=== PATIENT | female | born 1960 | race Caucasian/White ===

== ENCOUNTER → 2017-11-15 16:52 | Outpatient (CLI) | payer MEDICAID, SELFPAY ==
--- NOTE | 2017-11-15 17:30 | MRI_ITS ---
MR Brain WO/W Contrast INDICATION: Neck stiffness, dizziness, blurred vision, pain throughout body. Symptoms x 2 years COMPARISON: None TECHNIQUE: Multiplanar multisequence MRI examination of the brain without and with IV contrast. 7 mL of gadavist were given intravenously.. FINDINGS: There is no evidence of restricted diffusion to suggest acute ischemia/infarction. Ventricular system is normal in size and symmetric. Cortical sulci, sylvian fissures, and basal cisterns are well seen. Roldan-white matter junction is normal. Midline structures and craniocervical junction are normal. The cerebellopontine angles are normal and symmetric. Supra-and infratentorial brain parenchyma demonstrates normal signal. There is no evidence of parenchymal microhemorrhage, mass effect or midline shift, or abnormal extra-axial collection. After contrast administration, there is no abnormal parenchymal or extra-axial enhancement identified. Flow-voids of the [place] vascularity are well seen. The paranasal sinuses and mastooid air cells are clear. Sagittal sequence demonstrates posterior angulation of the odontoid process and C2-3 fusion resulting in posterior kinking of the cord at the medulla oblongata, this is suggestive of Klippel-Feil deformity and could be further evaluated with CT of the cervical spine including craniocervical junction. MRI/Brain W/WO Contrast IMPRESSION: Unremarkable MRI examination of the brain. 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 at 1922 Reported and signed by: Savannah Aponte MD Electronically Signed: Savannah Aponte MD at 19:21 EDT Tel , Service support ,
== END ==
PROVIDERS: Family Provider Family Medicine; PCP Family Medicine; Visit Provider Family Medicine
DX: H53.2 Diplopia (principal); R20.2 Paresthesia of skin; M79.602 Pain in left arm; R53.83 Other fatigue
CPT/HCPCS: 70553; A9585

== ENCOUNTER → 2017-11-22 16:45 | Outpatient (CLI) | payer MEDICAID, SELFPAY ==
[2017-11-22 17:30] LABS: Absolute Lymphocyte Count 1.51 X10^3/ul (0.83-4.51); Absolute Neutrophil Count 1.9 X10^3/uL (2.0-7.7); Basophil# 0.02 X10^3/uL; Basophil% 0.5 % (0-1); Eosinophil# 0.04 X10^3/uL; Eosinophils% 1.1 % (0-5); Hematocrit 38.2 % (37-47); Hemoglobin 13.4 g/dl (12.0-15.0); Lymphocyte # 1.51 X10^3/ul (4.0); Mean Corp Hgb Conc 35.1 g/gl (32-36); Mean Corpuscular Hgb 31.1 pg (27.0-32.0); Mean Corpuscular Volume 88.6 fL (81-99); Mean Platelet Vol. 9.9 fl (6.2-12.0); Monocyte# 0.18 X10^3/uL; Monocyte% 4.9 % (0-10); Neutrophil # 1.93 X10^3/uL (2.7-7.7); Neutrophil % 52.5 % (47-70); POSITIVE COUNT NO; POSITIVE DIFFERENTIAL NO; POSITIVE MORPHOLOGY NO; Platelet Count 263 K/mm3 (150-450); RBC Distribution Width SD 38.2 fl (35.1-43.9); Red Blood Count 4.31 M/mm3 (4.2-5.4); White Blood Count 3.7 K/mm3 (4.4-11.0)
[2017-11-22 17:36] LABS: Erythrocyte Sedimentation Rate 3 mm/hr (0-30)
[2017-11-22 18:09] LABS: CRP < 2.90 mg/L (0.0-3.0)
[2017-11-24 14:02] LABS: ANTINUCLEAR ANTIBODIES DIRECT Negative (Negative)
== END ==
PROVIDERS: Family Provider Family Medicine; PCP Family Medicine; Visit Provider Family Medicine
DX: L30.9 Dermatitis, unspecified (principal); R21 Rash and other nonspecific skin eruption; M79.7 Fibromyalgia
CPT/HCPCS: 36415; 85025; 85652; 86038; 86140; 86225; 86235

== ENCOUNTER → 2017-12-01 09:27 | Outpatient (CLI) | payer MEDICAID, SELFPAY ==
--- NOTE | 2017-12-01 09:41 | MRI_ITS ---
STUDY: MRI CERVICAL SPINE WITH AND WITHOUT CONTRAST REASON FOR EXAM: Female, 57 years old. left arm pain, spondylosis, paresthesia of skin, fatigue; r/o ms TECHNIQUE: Standardized fat and water weighted pulse sequences were obtained in the sagittal and axial following I.V. administration of 6 ml of Gadavist contrast material. COMPARISON: X-ray January 07, 2017, CT April 18, 2013 FINDINGS: Normal foramen magnum and brainstem-cervical cord junction. Normal craniovertebral junction. Normal anterior atlantoaxial articulation. Normal odontoid process. Normal cervical lordosis. There is no spondylolisthesis. Disc heights are maintained. There is multilevel disc desiccation. 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 Bone marrow signal is normal. C2/3: There is no central canal or neuroforaminal stenosis. C3/4: There is a tiny central protrusion. There is ligamentum flavum hypertrophy contacting the posterior cord. No central canal or neuroforaminal stenosis. C4/5: There is mild left uncovertebral hyperostosis. Normal disc. No central canal or neuroforaminal stenosis. C5/6: There is a small central protrusion causing borderline mild central canal stenosis without neuroforaminal stenosis. C6/7: Normal. C7/T1: There is a small broad-based central protrusion. No central canal or neuroforaminal stenosis. Normal cervical cord. Normal visualized soft tissue structures. MRI/Spine Cervical W/WO Contrast IMPRESSION: No evidence of multiple sclerosis. There is mild multilevel degenerative disease. C3/4: There is ligamentum flavum hypertrophy contacting the posterior cord. C5/6: There is a small central protrusion causing borderline mild central canal stenosis. 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 Electronically Signed: Slime Reese MD at 14:09 EDT , Service support ,
== END ==
PROVIDERS: Family Provider Family Medicine; PCP Family Medicine; Visit Provider Family Medicine
DX: M47.812 Spondylosis without myelopathy or radiculopathy, cervical region (principal); M79.602 Pain in left arm; R20.2 Paresthesia of skin; R53.83 Other fatigue; H53.2 Diplopia
CPT/HCPCS: 72156; A9585

== ENCOUNTER → 2018-06-20 13:19 | Outpatient (CLI) | payer MEDICAID, SELFPAY ==
[2018-06-20 15:54] LABS: Amylase 67 U/L (25-115); Lipase 113 U/L (73-393)
== END ==
PROVIDERS: Family Provider Family Medicine; PCP Family Medicine; Visit Provider Family Medicine
DX: R14.0 Abdominal distension (gaseous) (principal)
CPT/HCPCS: 36415; 82150; 83690

== ENCOUNTER 2018-07-25 11:07 | Emergency (ER) | payer MEDICAID, SELFPAY ==
[2018-07-25 11:07] VITALS: BP 126/78; PULSE 71; RESP 18; TEMP 36.6; O2SAT 100; BMI 19.5
--- NOTE | 2018-07-25 11:26 | EKG12_ITS ---
Test Reason : FATIGUE Blood Pressure : / mmHG Vent. Rate : 067 BPM Atrial Rate : 067 BPM P-R Int : 158 ms QRS Dur : 078 ms QT Int : 408 ms P-R-T Axes : 077 053 066 degrees QTc Int : 431 ms Normal sinus rhythm Normal ECG Confirmed by JACEY GRAJEDA, KAYCE ([id number]), slot editor DANIEL TAVAREZ ([id number] on 07/26/2018 3:33:37 PM Referred By: AL Confirmed By:KAYCE MARI MD
--- NOTE | 2018-07-25 11:31 | ED.DCSUM_ITS ---
- ER Visit Summary Date of Service: 07/25/18 Chief Complaint: Fatigue History of Present Illness: The patient is a 57 F history of fibromyalgia and cervical disc. Patient states she has had fatigue for 1-2 weeks. She is also had some abdominal discomfort and chest discomfort. Not associated with exertion. No fever. Mild nausea but no vomiting or diarrhea. No melena or dysuria. Physical Examination: Well-appearing middle-age female no acute distress. Vital signs are stable and afebrile. Pulse ox is 100% on room air no signs of hypoxia. HEENT exam unremarkable. Pupils round reactive light. No facial droop. Normal speech. Moist mucous membranes. Neck nontender no lym phadenopathy. Lungs clear to auscultation bilaterally. Heart regular rhythm no murmur. Rate about 70. Extremities moving all 4. Calves nontender without edema or cords. Neurologically awake and alert without any focal motor deficits. 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 Dorsi plantar flexion intact. Back nontender. Skin unremarkable. Test Results: CBC normal. Chemistries normal. UA normal. Troponin normal. Chest x-ray no acute abnormality read both by myself and radiologist. EKG sinus rhythm rate of 67 with no acute abnormality. No signs of [place] or ischemia. No dysrhythmia. Emergency Department Course and Treatment: She was fatigue with basically an unremarkable exam. Screening labs will be obtained. Multiple repeat exams patient is doing well. I went over all test results with her and her significant other. They are comfortable with her being discharged home. She can follow-up with her primary care physician. Treatment Plan: Follow-up with your doctor. Disposition: Discharge Impression: Acute generalized fatigue of uncertain etiology History of fibromyalgia This note was generated with [employer] dictation software. It may contain incorrect words, spelling, and punctuation that were not noted in review of the chart prior to signing ED Disposition - Plan for ED Patient: Chief Complaint: Fatigue Referrals: Saulo Griggs DO [Primary Care Provider] -
--- NOTE | 2018-07-25 11:33 | RAD_ITS ---
STUDY: X-RAY CHEST REASON FOR EXAM: Female, 57 years old. Chest pain. TECHNIQUE: Single AP portable upright view of the chest. COMPARISON: Portable AP upright chest x-ray October 29, 2015. FINDINGS: The lungs are clear and expanded. There is no demonstrated pleural abnormality. Normal size heart. Normal mediastinum and jareth. Normal visualized pulmonary arteries. Normal visualized aortic arch and descending thoracic aorta. There are stable multilevel degenerative changes of the visualized thoracic spine. 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 Borderline widening of the right acromioclavicular joint. There is no demonstrated abnormality of the visualized soft tissue structures of the upper abdomen. RAD/Chest 1 View (Portable) IMPRESSION: No acute cardiopulmonary disease. Electronically Signed: Bobo Stevens MD at 12:29 EST , Service support ,
[2018-07-25 11:48] LABS: Absolute Lymphocyte Count 1.15 X10^3/ul (0.83-4.51); Absolute Neutrophil Count 1.6 X10^3/uL (2.0-7.7); Basophil# 0.01 X10^3/uL; Basophil% 0.3 % (0-1); Eosinophil# 0.09 X10^3/uL; Hematocrit 40.7 % (37-47); Hemoglobin 13.7 g/dl (12.0-15.0); Lymphocyte # 1.15 X10^3/ul (4.0); Lymphocyte % 38.9 % (19-41); Mean Corp Hgb Conc 33.7 g/gl (32-36); Mean Corpuscular Hgb 30.3 pg (27.0-32.0); Mean Platelet Vol. 9.8 fl (6.2-12.0); Monocyte# 0.13 X10^3/uL; Monocyte% 4.4 % (0-10); Neutrophil # 1.58 X10^3/uL (2.7-7.7); Neutrophil % 53.4 % (47-70); Platelet Count 232 K/mm3 (150-450); RBC Distribution Width CV 12.3 % (11.6-14.6); RBC Distribution Width SD 39.7 fl (35.1-43.9); Red Blood Count 4.52 M/mm3 (4.2-5.4)
[2018-07-25 11:50] LABS: POSITIVE COUNT NO; POSITIVE DIFFERENTIAL NO; POSITIVE MORPHOLOGY NO
[2018-07-25 12:04] LABS: Anion Gap 7 (5-15); BUN 20 mg/dL (7-18); BUN/Creat Ratio 28.2 RATIO (10-20); Calcium,Total 8.9 mg/dL (8.5-10.1); Chloride 106 mmol/L (98-107); Creatinine, Serum 0.71 mg/dL (0.55-1.02); EST Glomerular Filtration Rate 91 mL/min (>60); Est Glom Filt Rate - Afr Amer 110 mL/min (>60); Estimated Creatinine Clearance 79.19 ml/min; Glucose 88 mg/dL (74-106); Potassium 4.1 mmol/L (3.5-5.1); Sodium Level 142 mmol/L (136-145)
[2018-07-25 13:04] LABS: Mucous, Urine 0 SEEN /hpf (<or=2+)
[2018-07-25 13:05] LABS: Color, Urine Yellow (Yellow); Glucose, Dipstick Normal (Normal); Ketone-Dipstick 15 mg/dl (Negative); Leukocyte Esterase-Dipstick 100 /ul (Negative); Nitrite-Dipstick Negative (Negative); Occult Blood-Urine 10 /ul (Negative); Protein-Dipstick Negative (Negative); Specific Gravity, Urine 1.015 (1.002-1.030); Urine Bilirubin Dipstick Negative (Negative); Urine Clarity Clear (Clear); Urine Urobilinogen Normal (Normal)
[2018-07-25 13:07] VITALS: BP 111/50; PULSE 79; RESP 22; O2SAT 98
[2018-07-25 13:17] LABS: Red Blood Cells-Urine 0-5 SEEN /hpf (0-5); Squamous Epithelial Cells - UA 0-5 SEEN /hpf (5-10); White Blood Cells 0-5 SEEN /hpf (0-5)
[2018-07-25 13:18] LABS: Bacteria RARE /hpf (None Seen)
[2018-07-25 13:34] VITALS: O2SAT 98
--- NOTE | 2018-07-25 14:43 | ED.DEP ---
ED Disposition - Plan for ED Patient: Disposition: Home or Assisted Living Chief Complaint: Fatigue Instructions: ED Weakness [facility] Referrals: Saulo Griggs DO [Primary Care Provider] - As Needed Additional Instructions: Follow-up with primary care physician. All your lab work, chest x-ray and EKG were normal today.
[2018-07-25 15:00] VITALS: BP 99/59; PULSE 70; RESP 16; O2SAT 100
== END 2018-07-25 15:00 | disposition home or self-care (01) ==
PROVIDERS: Emergency Provider Emergency Medicine; Family Provider Family Medicine; PCP Family Medicine
DX: R53.83 Other fatigue (principal); M79.7 Fibromyalgia
CPT/HCPCS: 71045; 80048; 81001; 84484; 85025; 93005; 99284; A4216

== ENCOUNTER → 2018-07-27 10:29 | Outpatient (CLI) | payer MEDICAID, SELFPAY ==
[2018-07-25 11:07] VITALS: BMI 19.5
[2018-07-27 12:23] LABS: Erythrocyte Sedimentation Rate < 1 mm/hr (0-30)
[2018-07-27 12:25] LABS: Absolute Lymphocyte Count 1.06 X10^3/ul (0.83-4.51); Absolute Neutrophil Count 1.9 X10^3/uL (2.0-7.7); Basophil# 0.03 X10^3/uL; Basophil% 0.9 % (0-1); Hemoglobin 13.9 g/dl (12.0-15.0); Lymphocyte # 1.06 X10^3/ul (4.0); Lymphocyte % 31.6 % (19-41); Mean Corp Hgb Conc 33.9 g/gl (32-36); Mean Corpuscular Hgb 30.8 pg (27.0-32.0); Mean Corpuscular Volume 90.9 fL (81-99); Mean Platelet Vol. 10.2 fl (6.2-12.0); Monocyte# 0.22 X10^3/uL; Monocyte% 6.6 % (0-10); Neutrophil # 1.93 X10^3/uL (2.7-7.7); Neutrophil % 57.6 % (47-70); Platelet Count 258 K/mm3 (150-450); RBC Distribution Width CV 12.4 % (11.6-14.6); RBC Distribution Width SD 40.8 fl (35.1-43.9); Red Blood Count 4.51 M/mm3 (4.2-5.4); White Blood Count 3.4 K/mm3 (4.4-11.0)
[2018-07-27 12:31] LABS: POSITIVE COUNT NO; POSITIVE DIFFERENTIAL NO; POSITIVE MORPHOLOGY NO
[2018-07-27 12:49] LABS: Albumin, Serum 4.4 g/dL (3.2-5.0); BUN 18 mg/dL (7-18); BUN/Creat Ratio 26.4 RATIO (10-20); Creatinine, Serum 0.68 mg/dL (0.55-1.02); EST Glomerular Filtration Rate 95 mL/min (>60); Est Glom Filt Rate - Afr Amer 114 mL/min (>60); Glucose 79 mg/dL (74-106); Protein, Total 7.5 g/dL (6.4-8.2)
[2018-07-27 12:50] LABS: ALB/GLOB Ratio 1.4 RATIO (0.9-2.4); AST(SGOT) 19 U/L (15-37); Alanine Aminotransfer ALT/SGPT 34 U/L (13-56); Alkaline Phosphatase 61 U/L (45-117); Anion Gap 6 (5-15); CPK Total, Creatine Kinase 64 U/L (26-192); Calcium,Total 9.1 mg/dL (8.5-10.1); Chloride 107 mmol/L (98-107); Globulin 3.1 g/dL (2.2-4.2); Sodium Level 140 mmol/L (136-145)
[2018-07-27 14:47] LABS: CRP < 2.90 mg/L (0.0-3.0)
== END ==
PROVIDERS: Family Provider Family Medicine; PCP Family Medicine; Referring Provider Family Medicine; Visit Provider Family Medicine
DX: M79.10 Myalgia, unspecified site (principal); I95.9 Hypotension, unspecified; R53.83 Other fatigue
CPT/HCPCS: 36415; 80053; 82533; 82550; 85025; 85652; 86140

== ENCOUNTER 2018-10-02 16:58 | Emergency (ER) | payer MEDICAID, SELFPAY ==
[2018-10-02 16:58] VITALS: BP 123/79; PULSE 80; RESP 16; TEMP 36.5; O2SAT 99; BMI 20.1
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
--- NOTE | 2018-10-02 17:21 | ED.DEP ---
ED Disposition - Plan for ED Patient: Instructions: ED Burn Thermal D 1st 2nd Dressing Prescriptions: Oxycodone HCl/Acetaminophen [Percocet 5/325] 1 tab PO Q6H PRN PRN 3 Days #12 tab PRN Reason: Pain Referrals: Saulo Griggs DO [Primary Care Provider] - 3-5 Days
[2018-10-02] MEDS: Diphth,Pertuss(Acell),Tet Vac 0.5 ML Vial IM (17:32)
[2018-10-02] MEDS: BACITRACIN 15 GM Tube 1 APPLIC TOPICAL (17:33)
[2018-10-02 17:45] VITALS: BP 121/74; PULSE 76; RESP 16; O2SAT 100
== END 2018-10-02 17:46 | disposition home or self-care (01) ==
LOC: ED 17:25
PROVIDERS: Emergency Provider Emergency Medicine; Family Provider Family Medicine; PCP Family Medicine
DX: T20.14XA Burn of first degree of nose (septum), initial encounter (principal); T20.16XA Burn of first degree of forehead and cheek, initial encounter; T20.12XA Burn of first degree of lip(s), initial encounter; X13.1XXA Other contact with steam and other hot vapors, initial encounter; Y93.G3 Activity, cooking and baking; Y92.000 Kitchen of unspecified non-institutional (private) residence as the place of occurrence of the external cause; Y99.8 Other external cause status
CPT/HCPCS: 90471; 90715; 99282

== ENCOUNTER → 2018-10-19 10:06 | Outpatient (CLI) | payer MEDICAID, SELFPAY ==
[2018-10-02 16:58] VITALS: BMI 20.1
--- NOTE | 2018-10-19 10:09 | RAD_ITS ---
STUDY: X-RAY - LUMBAR SPINE REASON FOR EXAM: Female, 57 years old. Low back pain and right hip pain. TECHNIQUE: 5 view(s) of the lumbar spine were obtained. COMPARISON: None FINDINGS: Normal lumbar lordosis. There is no substantial scoliosis. There is a normal alignment of the vertebrae. There is mild endplate spondylosis of the lumbar vertebrae and the level of L4-L5. The disc spaces are within normal limits. There is no demonstrated fracture. The soft tissue structures are unremarkable. RAD/L/S Spine Min 4 Views IMPRESSION: Minimal degenerative changes. Electronically Signed: Elver Oliveira MD at 10:09 EDT Tel , Service support ,
--- NOTE | 2018-10-19 10:09 | RAD_ITS ---
STUDY: X-RAY - PELVIS AND RIGHT HIP REASON FOR EXAM: Female, 57 years old. Low back pain and right hip pain. TECHNIQUE: 3 views of the pelvis and hip. COMPARISON: None. FINDINGS: There is a non-specific bowel gas pattern. There are multiple calcified phleboliths. Normal bilateral iliac wings, sacroiliac joints and visualized sacrum. Normal bilateral superior and inferior pubic rami. Normal pubic symphysis. Normal bilateral ischial tuberosities. Normal visualized femoral head. Normal acetabulum. There is mild articular joint space narrowing of the hip. RAD/HIP, UNI W/ Pelvis 2-3 Views IMPRESSION: Mild narrowing of the hip joint. Electronically Signed: Elver Oliveira MD at 10:03 EDT Tel , Service support ,
== END ==
PROVIDERS: Family Provider Family Medicine; PCP Family Medicine; Referring Provider Family Medicine; Visit Provider Family Medicine
DX: M54.17 Radiculopathy, lumbosacral region (principal); M25.551 Pain in right hip
CPT/HCPCS: 72110; 73502

== ENCOUNTER 2018-11-08 06:41 | Emergency (ER) | payer MEDICAID, SELFPAY ==
[2018-11-08 06:42] VITALS: BP 135/53; PULSE 96; RESP 18; TEMP 36.4; O2SAT 97; BMI 21.0
--- NOTE | 2018-11-08 06:54 | ED.DCSUM_ITS ---
- ER Visit Summary Date of Service: 11/08/18 Chief Complaint: Vomiting and diarrhea History of Present Illness: The patient is a 58 F presenting with vomiting and diarrhea. Patient states this started yesterday. She has had vomiting and diarrhea throughout the night. She states her granddaughter was recently ill with similar complaints. She denies recent antibiotics, travel, or bad food exposure. Denies blood in her stool or emesis. She has diffuse abdominal cramping. Denies fever. She called her primary care physician and was advised to come to the ED for IV fluids. Physical Examination: Blood pressure 135/53, temperature 97.6, heart rate 96, respiratory rate 18. Pulse ox 97% on room air. Alert no acute distress. HEENT exam dry mucous membranes Neck is supple. Lungs are clear and equal bilaterally. Heart is regular rate and rhythm. Abdomen is soft diffuse tenderness with no rebound or guarding Extremities are unremarkable. Skin is warm and dry. No focal neurologic deficit. Remainder of exam is unremarkable. Emergency Department Course and Treatment: Patient was given IV fluids, Zofran. CBC, chemistries unremarkable other than glucose 130, BUN 26. ALT 58, lipase is normal. Patient is starting to feel improved. She was given additional IV fluids. Urinalysis is pending. Patient will be checked out to the oncoming physician for reevaluation. Disposition: Pending Impression: Vomiting and diarrhea This note was generated with [employer] dictation software. It may contain incorrect words, spelling, and punctuation that were not noted in review of the chart kamila or to signing ED Disposition - Plan for ED Patient: Referrals: Saulo Griggs DO [Primary Care Provider] -
[2018-11-08] MEDS: 0.9% Normal Saline 1,000 ML 1000 ML IV (06:55)
[2018-11-08] MEDS: Ondansetron 4 MG/2 ML Vial IV (06:56)
[2018-11-08 07:00] LABS: Absolute Lymphocyte Count 0.47 X10^3/ul (0.83-4.51); Absolute Neutrophil Count 5.2 X10^3/uL (2.0-7.7); Basophil# 0.01 X10^3/uL; Basophil% 0.2 % (0-1); Eosinophil# 0.01 X10^3/uL; Eosinophils% 0.2 % (0-5); Hemoglobin 16.4 g/dl (12.0-15.0); Lymphocyte # 0.47 X10^3/ul (4.0); Lymphocyte % 7.9 % (19-41); Mean Corp Hgb Conc 34.9 g/gl (32-36); Mean Corpuscular Hgb 31.1 pg (27.0-32.0); Mean Corpuscular Volume 89.2 fL (81-99); Mean Platelet Vol. 9.9 fl (6.2-12.0); Monocyte# 0.22 X10^3/uL; Monocyte% 3.7 % (0-10); Neutrophil # 5.24 X10^3/uL (2.7-7.7); Neutrophil % 87.8 % (47-70); Platelet Count 262 K/mm3 (150-450); RBC Distribution Width CV 12.6 % (11.6-14.6); RBC Distribution Width SD 40.1 fl (35.1-43.9); Red Blood Count 5.27 M/mm3 (4.2-5.4)
[2018-11-08 07:01] LABS: Differential Indicated SCAN CRITERIA MET; POSITIVE COUNT NO; POSITIVE DIFFERENTIAL YES; POSITIVE MORPHOLOGY NO
[2018-11-08 07:09] LABS: ALB/GLOB Ratio 1.3 RATIO (0.9-2.4); AST(SGOT) 37 U/L (15-37); Alanine Aminotransfer ALT/SGPT 58 U/L (13-56); Albumin, Serum 4.7 g/dL (3.2-5.0); Alkaline Phosphatase 83 U/L (45-117); Anion Gap 8 (5-15); BUN 26 mg/dL (7-18); BUN/Creat Ratio 25.7 RATIO (10-20); Calcium,Total 9.1 mg/dL (8.5-10.1); Chloride 110 mmol/L (98-107); Creatinine, Serum 1.01 mg/dL (0.55-1.02); EST Glomerular Filtration Rate 60 mL/min (>60); Est Glom Filt Rate - Afr Amer 73 mL/min (>60); Estimated Creatinine Clearance 57.34 ml/min; Globulin 3.6 g/dL (2.2-4.2); Glucose 130 mg/dL (74-106); Lipase 73 U/L (73-393); Potassium 3.6 mmol/L (3.5-5.1); Protein, Total 8.3 g/dL (6.4-8.2); Sodium Level 139 mmol/L (136-145)
--- NOTE | 2018-11-08 07:25 | ED.DEP ---
ED Disposition - Plan for ED Patient: Instructions: ED Diet Vomiting Diarrhea Prescriptions: Ondansetron [Zofran Odt] 4 mg PO Q8H PRN PRN #10 tablet PRN Reason: Nausea Referrals: Saulo Griggs DO [Primary Care Provider] -
[2018-11-08] MEDS: 0.9% Normal Saline 1,000 ML 999 ML IV (07:52)
[2018-11-08 08:00] LABS: Color, Urine Yellow (Yellow); Glucose, Dipstick Normal (Normal); Ketone-Dipstick 50 mg/dl (Negative); Leukocyte Esterase-Dipstick 100 /ul (Negative); Nitrite-Dipstick Negative (Negative); Occult Blood-Urine 150 /ul (Negative); Protein-Dipstick 30 mg/dl (Negative); Urine Bilirubin Dipstick Negative (Negative); Urine Clarity Sl. Cloudy (Clear); Urine Urobilinogen Normal (Normal)
[2018-11-08 08:20] LABS: Bacteria 1+ /hpf (None Seen); Mucous, Urine 1+ /hpf (<or=2+); Red Blood Cells-Urine 0-5 SEEN /hpf (0-5); Squamous Epithelial Cells - UA 0-5 SEEN /hpf (5-10); White Blood Cells 0-5 SEEN /hpf (0-5)
--- NOTE | 2018-11-08 09:32 | ED.DEP ---
ED Disposition - Plan for ED Patient: Instructions: ED Diet Vomiting Diarrhea Prescriptions: Ondansetron [Zofran Odt] 4 mg PO Q8H PRN PRN #10 tablet PRN Reason: Nausea Dicyclomine HCl [Bentyl] 10 mg PO 4X/DAY #10 cap Referrals: Saulo Griggs DO [Primary Care Provider] -
[2018-11-08 09:47] VITALS: RESP 18
== END 2018-11-08 09:50 | disposition home or self-care (01) ==
LOC: ED 07:11
PROVIDERS: Emergency Provider Emergency Medicine; Family Provider Family Medicine; PCP Family Medicine
DX: A08.4 Viral intestinal infection, unspecified (principal); M79.7 Fibromyalgia; M06.9 Rheumatoid arthritis, unspecified
CPT/HCPCS: 80053; 81001; 83690; 85025; 96361; 96374; 99283; J7030; A4216; J2405

== ENCOUNTER → 2019-06-07 16:12 | Outpatient (CLI) | payer MEDICAID, SELFPAY | PROVIDERS: Family Provider Family Medicine; PCP Family Medicine; Visit Provider Family Medicine | DX: N39.0 Urinary tract infection, site not specified (principal) | CPT/HCPCS: 87086; 87088 ==

== ENCOUNTER → 2019-06-13 16:52 | Outpatient (CLI) | payer MEDICAID, SELFPAY ==
--- NOTE | 2019-06-13 17:02 | MRI_ITS ---
STUDY: MRI RIGHT MIDFOOT REASON FOR EXAM: Female, 58 years old. Peroneal tendinitis. Pain. TECHNIQUE: Standardized fat and water weighted pulse sequences were obtained in all 3 orthogonal planes. COMPARISON: None. FINDINGS: Normal talonavicular articulation. Normal calcaneocuboid articulation. Normal navicular-cuneiform articulations. Normal intercuneiform articulations. There is plantar heel spur. Normal first tarsometatarsal articulation. Normal Lisfranc ligament. Normal second and third tarsometatarsal articulations. Normal cuboid fourth and cuboid fifth tarsometatarsal articulation. Normal first through fifth metatarsi. There is no demonstrated fracture of the metatarsal bones. Normal tibialis anterior tendon. Normal extensor hallucis longus tendon. Normal extensor digitorum longus tendons. There is os peroneum with edema, incorporated into the peroneal longus, series 3 image 02/07. Normal peroneus brevis tendon and distal insertion. Normal intrinsic muscles of the mid and forefoot region. Normal extensor digitorum brevis muscle. Normal subcutis adipose space. MRI/Lower Ext/No Jt/w/o IMPRESSION: Os peroneum with edema in the peroneal longus tendon. Electronically Signed: Shane Jane MD at 12:08 EST , Service support ,
== END ==
PROVIDERS: Family Provider Family Medicine; PCP Family Medicine; Referring Provider Podiatrist Foot & Ankle Surgery; Visit Provider Podiatrist Foot & Ankle Surgery
DX: M76.71 Peroneal tendinitis, right leg (principal)
CPT/HCPCS: 73718

== ENCOUNTER → 2019-06-18 15:24 | Outpatient (CLI) | payer MEDICAID, SELFPAY | PROVIDERS: Family Provider Family Medicine; PCP Family Medicine; Referring Provider Family Medicine; Visit Provider Family Medicine | DX: R19.7 Diarrhea, unspecified (principal) | CPT/HCPCS: 83630; 87177; 87209; 87493; 87506 ==

== ENCOUNTER → 2019-07-14 14:23 | Outpatient (CLI) | payer MEDICAID, SELFPAY ==
[2019-07-14 08:42] VITALS: BMI 21.0
== END ==
PROVIDERS: Family Provider Family Medicine; PCP Family Medicine; Referring Provider Physician Assistant; Visit Provider Physician Assistant
DX: J02.9 Acute pharyngitis, unspecified (principal)
CPT/HCPCS: 87070

== ENCOUNTER 2019-10-03 10:30 | Outpatient (RCR) | payer MEDICAID, SELFPAY ==
[2019-07-14 08:42] VITALS: BMI 21.0
--- NOTE | 2019-09-26 14:07 | HP.PTEVAL ---
Patient's Visit Information ALAINA FOWLER is a 58 year old F referred to Physical Therapy by Jeff Guevara DPM with a diagnosis of S/P REPAIR PERONEAL TENDON. Date of Evaluation: 09/26/19 Physical Therapist: Kvng Henry, PT, Cert MDT, OCS - Visit Plan Frequency: 2x /Week Duration: 4 Weeks Plan: PT INTERVENTION GRADED AROM /STRENGTHENING ANKLE STABILIZERS ,PROPRIOCEPTION RIGT ANKLE,CP/ESTM NEEDED, FUNCTIONAL STRENGTHENING - Subjective Subjective: This 58 y/o female presents to physical therapy with s/p peroneal tendon repair on Jul 27 at [facility]. Patient d/c DOS with NWB RLE and CAM boot with 3weeks,then PWB with fww and CAM boot 2weeks ,then fww WBAT with CAM boot. Patient then last week removed boot no device and use CAM boot as needed. Patient has edema with some pain. Patient has difficulty with stairs one step at a time.Patient is unable to squat/kneeling. Patient pain affects ablity to stand ,walk impairs ADLS'. Patient condition affects housework tasks and ADL'S/job demands.Patient MRI showed extra bone showed tendon tear perneal.Uses boot when walking long distances. SOCIAL: single. VOCATION: [employer] - Pain Right Ankle Pain Intensity (Out of 10): 1 Pain Intensity Range: 10 - Objective POSTURE: frontal plane mechanics PES CAVUS. GAIT: mild decrease stance time right foot with decrease heelstrike toe off. NUERO: denies parathesia/tingling. EDEMA: trimallallor 26 cm. AROM ANKLE: dorsiflexion 0 degrees,planterflexion 60 degrees,inversion 20 degrees ,eversion 0 degrres. MMT: dorsiflexion 4-/5,planterflexion 2+/5, eversion 3+/5,inversion 3+/5. PROPRIOCEPTION: poor RLE - Goals Goal 1:: Independant with HEP Goal Time Frame: 4-6 Weeks Goal 2:: Patient to normalize gait patter. Goal Time Frame: 4-6 Weeks Goal 3:: Patient to improve proprioception symmtrical right to left for function. Goal Time Frame: 4-6 Weeks Goal 4:: Patient to improve AROM right ankle symmtrical to left for stairs. Goal Time Frame: 4-6 Weeks Goal 5:: Patient to increase strength right ankle 4/5 to improve gait. Goal Time Frame: 4-6 Weeks Goal 6:: Patient to improve LFES score by 10 points or > to improve QOL. Goal Time Frame: 4-6 Weeks - Rehabilitation Potential Physical Therapy Diagnosis: Patient underwent s/p repair of peroneal tendon with pain,mild swelling,ROM impaired and decrease strength/proprioception thus impairs ADLS'a and walking. Rehabilitation Potential: Good - Anticipated Interventions Patient/Client Instruction: Educate patient on: Condition, Plan of Care For the Purpose of:: To decrease pain, To increase ROM, To improve muscle performance and motor function, To improve ability to perform ADL's, To increase tolerance to activity/condition/position, To improve ability of physical actions for home/community/work/leisure, To improve health of tissue, To decrease soft tissue restriction, To increase flexibility/ROM, To improve endurance, To improve balance, To improve ability to perform tasks related to life management Therapeutic Exercise to Include: Strength training, Endurance training, Balance training, Flexibilty training, Active ROM Comment: ANKLE For the Purpose of:: To decrease pain, To increase ROM, To improve muscle performance and motor function, To improve ability to perform ADL's, To increase tolerance to activity/condition/position, To improve ability of physical actions for home/community/work/leisure, To improve health of tissue, To decrease soft tissue restriction, To increase flexibility/ROM, To improve ability to perform tasks related to life management TENS: Yes IF ES: Yes Cryotherapy (ice pack, ice massage): Yes Thermo therapy (hot pack): Yes For the Purpose of:: To decrease pain, To increase ROM, To improve nutrient delivery to tissue, To increase oxygenation perfusion, To improve health of tissue, To decrease soft tissue restriction Thank you for the opportunity to evaluate your patient. For Medicare and Medicare HMO plans, please review the plan of care and approve it. It will need to be FAXED BACK to us at [phone] for Medicare purposes. For Medicare only, by signing this I certify the plan of care. Please let me know if there are questions or concerns regarding this plan of care. Physician Signature: Date:
--- NOTE | 2019-10-22 14:05 | HP.PT.NRP ---
ALAINA FOWLER was seen in my office for initial evaluation on 09/26/19. The following Plan of Care was established for this patient: Initial Frequency: 2x /Week Initial Duration: 4 Weeks Patient/Client Instruction: Educate patient on: Condition, Plan of Care For the Purpose of:: To decrease pain, To increase ROM, To improve muscle performance and motor function, To improve ability to perform ADL's, To increase tolerance to activity/condition/position, To improve ability of physical actions for home/community/work/leisure, To improve health of tissue, To decrease soft tissue restriction, To increase flexibility/ROM, To improve endurance, To improve balance, To improve ability to perform tasks related to life management Therapeutic Exercise to Include: Strength training, Endurance training, Balance training, Flexibilty training, Active ROM For the Purpose of:: To decrease pain, To increase ROM, To improve muscle performance and motor function, To improve ability to perform ADL's, To increase tolerance to activity/condition/position, To improve ability of physical actions for home/community/work/leisure, To improve health of tissue, To decrease soft tissue restriction, To increase flexibility/ROM, To improve ability to perform tasks related to life management TENS: Yes IF ES: Yes Cryotherapy (ice pack, ice massage): Yes Thermo therapy (hot pack): Yes For the Purpose of:: To decrease pain, To increase ROM, To improve nutrient delivery to tissue, To increase oxygenation perfusion, To improve health of tissue, To decrease soft tissue restriction This patient was last seen in our office . Pertinent comments regarding their Physical therapy will appear below: Patient seen for PT for peroneal surgery established HEP rom/flexablity strengthening,but patient didnt return due to coronoviris At this point I will be discontinuing this patient from physical therapy. I would be happy to see this patient again in the future if found appropriate by the physician. Thank you! Kvng Henry, PT, Cert MDT, OCS
== END 2019-10-03 19:00 | disposition home or self-care (01) ==
LOC: PT 10:30
PROVIDERS: PCP Family Medicine; Referring Provider Podiatrist Foot & Ankle Surgery; Visit Provider Podiatrist Foot & Ankle Surgery
DX: Z98.890 Other specified postprocedural states (principal)
CPT/HCPCS: 97110; 97162

== ENCOUNTER → 2020-08-20 | Outpatient (CLI) | payer MEDICAID, SELFPAY ==
[2019-07-14 08:42] VITALS: BMI 21.0
== END | disposition home or self-care (01) ==
LOC: LABSPEC 14:00
PROVIDERS: PCP Family Medicine; Referring Provider Family Medicine; Visit Provider Family Medicine
DX: Z20.822 Contact with and (suspected) exposure to COVID-19 (principal)
CPT/HCPCS: 87635; C9803; U0005; U0003

== ENCOUNTER → 2020-10-07 11:29 | Outpatient (CLI) | payer MEDICAID, SELFPAY ==
[2019-07-14 08:42] VITALS: BMI 21.0
[2020-10-07 15:25] LABS: CRP < 2.90 mg/L (0.0-3.0); Rheumatoid Factor < 10.0 IU/mL (<15)
[2020-10-07 15:43] LABS: Erythrocyte Sedimentation Rate 1 mm/hr (0-30)
[2020-10-10 05:10] LABS: CCP IgG Antibodies 6 units (0-19)
[2020-10-10 05:17] LABS: ANTINUCLEAR ANTIBODIES DIRECT Negative (Negative)
== END ==
PROVIDERS: PCP Family Medicine; Referring Provider Family Medicine; Visit Provider Family Medicine
DX: M25.50 Pain in unspecified joint (principal)
CPT/HCPCS: 36415; 85652; 86038; 86140; 86200; 86225; 86235; 86431

== ENCOUNTER → 2020-10-13 07:03 | Outpatient (CLI) | payer MEDICAID, SELFPAY ==
[2019-07-14 08:42] VITALS: BMI 21.0
--- NOTE | 2020-10-13 09:25 | NEURO ---
NCS and/or EMG Patient Report Ordering Doctor: Saulo Griggs DATE OF SERVICE: 10/13/20 Indication: Bilateral hand and wrist pain for several years, but worsening of late. No fixed weakness or sensory disturbance. Evaluate for entrapment neuropathy. Findings: Nerve conduction studies were performed in the right and left upper extremities. The right median motor study recording the abductor pollicis brevis showed a normal amplitude, normal distal latency and borderline conduction velocity. The right ulnar motor study recording the abductor digiti minimi showed a normal amplitude, normal distal latency and normal conduction velocity. No conduction block or focal slowing was present across the elbow. Right median-ulnar lumbrical / interosseous motor latencies showed a normal median latency compared to the ulnar. The right median sensory response recording digit two showed a normal amplitude, latency and conduction velocity. The right ulnar sensory response recording digit five showed a normal amplitude, latency and conduction velocity. The right radial sensory response recording over the extensor snuff box showed a normal amplitude, latency and conduction velocity. The left median motor study recording the abductor pollicis brevis showed a normal amplitude, normal distal latency and normal conduction velocity. The left ulnar motor study recording the abductor digiti minimi showed a normal amplitude, normal distal latency and normal conduction velocity. No conduction block or focal slowing was present across the elbow. Left median-ulnar lumbrical / interosseous motor latencies showed a normal median latency compared to the ulnar. The left median sensory response recording digit two showed a normal amplitude, latency and conduction velocity. The left ulnar sensory response recording digit five showed a normal amplitude, latency and conduction velocity. The left radial sensory response recording over the extensor snuff box showed a normal amplitude, latency and conduction velocity. Needle EMG of the right upper extremity and cervical paraspinal muscles was performed. No denervation was seen in any muscle. All motor unit morphology, activation and recruitment patterns were normal. Impression: This is a normal study. There is no electrophysiologic evidence of median neuropathy across the wrist on either side. In addition, there is no electrophysiologic evidence of ulnar neuropathy in either upper extremity. Finally, there is no evidence of a cervical radiculopathy in the right upper extremity. Terrell Charles D.O.
== END ==
PROVIDERS: PCP Family Medicine; Referring Provider Family Medicine; Visit Provider Family Medicine
DX: R20.2 Paresthesia of skin (principal)
CPT/HCPCS: 95886; 95913

== ENCOUNTER 2021-02-27 20:54 | Emergency (ER) | payer MEDICAID, SELFPAY ==
[2019-07-14 08:42] VITALS: BMI 21.0
[2021-02-27 20:55] VITALS: BP 125/65; PULSE 75; RESP 15; TEMP 36.2; O2SAT 97; BMI 20.3
--- NOTE | 2021-02-27 22:40 | RAD_ITS ---
INDICATION: FB -- thumb EXAMINATION/TECHNIQUE: X-RAY - RIGHT HAND XR Fingers Min 2 Views 3 VIEWS COMPARISON: None. FINDINGS: SOFT TISSUES: Trace soft tissue swelling suggested involving the palmar aspect of the distal thumb. No soft tissue gas. No radiopaque foreign body. BONES/JOINTS: No acute fracture or subluxation.. Normal alignment. Preservation of the joint space.. No sclerotic or destructive changes observed. RAD/Finger(s) Min 2 Views IMPRESSION: Minimal soft tissue swelling with no visible foreign body or soft tissue gas. Electronically Signed: Jeremiah Main DO at 23:21 EDT Tel , Service support ,
--- NOTE | 2021-02-27 22:46 | EDS_ITS ---
HPI History of Present Illness Chief Complaint: Upper Extremity Injury Informant: patient Onset/Context/Timing Onset: Yesterday Context: Gradual Onset (After injury) Timing: Continuous Quality of Pain: - (sore) Location: Right thumb Current Severity: Moderate Maximum Severity: Moderate Worsened by: Using thumb, palpation Relieved by: Leaving alone Associated Symptoms Associated Symptoms: Positive for - (Swelling); Negative for Parasthesia, Weakness and Loss of Funtion Narrative Narrative: Patient has a cracked screen guard on her cell phone. She was so wiping over the cracks and sustained a superficial laceration to her thumb and possibly a foreign body she is not sure but today over the course of the day her thumb has become more painful and swollen. She denies any systemic symptoms, discharge, bleeding. [id number]. She states it did bleed a little when she tried to pull out the foreign body. She is unsure if it still exist. [facility] Medical History Arthritis Chest pain Chronic neck and back pain Difficulty balancing Fatigue Knee pain Limb weakness Severe headache Shoulder pain Shoulder pain TMJ (dislocation of temporomandibular joint) Home Medications acetaminophen 500 - 1,000 mg PO QHS 05/15/14 [History Last Taken Unknown] cephalexin 500 mg PO Q6 #28 capsule 02/28/21 [Rx Last Taken Unknown] Allergy/AdvReac Type Severity Reaction Status Date / Time hydrocodone bitartrate Allergy Hives Verified 02/27/21 20:55 [From Vicodin] cortisone [Cortisone] AdvReac Other Verified 02/27/21 20:55 Surgical History H/O foot surgery H/O shoulder surgery History of cholecystectomy History of hysterectomy Social History Smoking Status: Never smoker alcohol intake: never ROS ROS ED Constitutional Constitutional ED: Denies chills or fever(s) Musculoskeletal Musculoskeletal: Reports extremity pain; Denies neck pain Integumentary Reports as per HPI and Abrasions; Denies rash or wounds Neurologic Neurologic: Denies paresthesias or weakness EXAM Physical Exam Const Vital Signs: 02/27/21 20:55 Temperature 97.2 F L Temperature Source Temporal Pulse Rate 75 Respiratory Rate 15 Blood Pressure 125/65 H Blood Pressure Mean 85 Pulse Ox 97 Oxygen Delivery Method Room Air Positive well nourished and well developed General Appearance ED: well developed and NAD Neck full ROM and supple Back/Spine normal ROM and normal to inspection Extremity Extremity Narrative: Right thumb: Full range of motion, tender superficial injury to the base of the distal phalanx volar aspect which is tender but otherwise fairly benign appearing, difficult to tell but there may be palpable subcutaneous foreign body. The rest of the thumb into the thenar eminence is tender, mildly swollen, there is no erythema or skin abnormality otherwise. Neuro oriented x3, no focal motor deficits and no sensory deficits noted Sensorium / Orientation: alert Psych mental status grossly normal and thought process normal Skin Skin Narrative: See above. Partial thickness minor entry site of foreign body volar right thumb without abscess. Rashes: no rashes MDM MDM MDM Narrative Medical decision making narrative: Patient was amenable to attempted foreign body retrieval, three-view x-ray my interpretation of the right thumb shows no radiopaque foreign body. Most of the screen protectors are glass, however it is certainly conceivable that hers may be hard plastic so we tried anyway. I treated the area with EMLA cream for 30 minutes and then tried to unroofed the area with forceps which was successful, it did not bleed, there is no track extending beyond where I unroofed, and I can palpate no foreign body. I recommend cephalexin in case this is infected, and following up or return if worse. She is comfortable with that plan. Procedures Other Procedures Procedure(s): Attempted foreign body removal, see above. Tolerated well no complications. Discharge Plan Triage Chief Complaint: Upper Extremity Injury ED Provider: Shane Fu Dx/Rx/DC Orders Clinical Impression: Open wound of right thumb Instructions: Wound Infection Tx Prescriptions: New cephalexin [cephalexin] 500 MG capsule 500 mg PO Q6 Qty: 28 RF: 0 No Action acetaminophen 500 MG tablet 500 - 1,000 mg PO QHS RF: 0 Primary Care Provider: Saulo Griggs Referrals: Saulo Griggs, [Primary Care Provider] - 3-5 Days if not improving Disposition Disposition: Home, Self Care
[2021-02-27] MEDS: Lidocaine/Prilocaine HCl 5 GM Tube TOPICAL (23:52)
[2021-02-28] MEDS: Cephalexin 250 MG Capsule 500 MG PO (01:04)
== END 2021-02-28 01:07 | disposition home or self-care (01) ==
PROVIDERS: Emergency Provider Emergency Medicine; PCP Family Medicine
DX: S60.391A Other superficial injuries of right thumb, initial encounter (principal); M19.90 Unspecified osteoarthritis, unspecified site; W26.8XXA Contact with other sharp object(s), not elsewhere classified, initial encounter; Y93.89 Activity, other specified; Y92.89 Other specified places as the place of occurrence of the external cause; Y99.8 Other external cause status
CPT/HCPCS: 73140; 99283

== ENCOUNTER → 2022-01-28 | Outpatient (CLI) | payer MEDICAID, SELFPAY ==
--- NOTE | 2022-01-28 16:46 | RAD_ITS ---
STUDY: X-RAY - UNILATERAL RIBS ( LEFT ) WITH CHEST REASON FOR EXAM: Female, 61 years old. injury TECHNIQUE - RIBS: 3 view(s) of the ribs. TECHNIQUE - CHEST: PA COMPARISON: 07/25/2018 FINDINGS - RIBS: Normal visualized ribs without a demonstrated fracture. FINDINGS - CHEST: The lungs are clear and expanded. There is no demonstrated pleural abnormality. Normal size heart. Normal mediastinum and jareth. Normal visualized pulmonary arteries. Normal visualized aortic arch and descending thoracic aorta. Normal visualized thoracic spine. Normal visualized ribs, clavicles, and shoulders. There is no demonstrated abnormality of the visualized soft tissue structures of the upper abdomen. RAD/Ribs Uni Min 3V w/PA Chest IMPRESSION: RIBS: Normal x-ray examination of the ribs. CHEST: Normal x-ray examination of the chest. Electronically Signed: Pineda Bond MD at 18:13 EDT ,
== END | disposition home or self-care (01) ==
LOC: MTRAD 16:46
PROVIDERS: PCP Family Medicine; Referring Provider Physician Assistant; Visit Provider Physician Assistant
DX: S29.9XXA Unspecified injury of thorax, initial encounter (principal)
CPT/HCPCS: 71101

== ENCOUNTER → 2022-07-29 | Outpatient (CLI) | payer MEDICAID, SELFPAY ==
--- NOTE | 2022-07-29 09:52 | RAD_ITS ---
INDICATION: PAIN EXAMINATION/TECHNIQUE: X-RAY - LEFT XR Shoulder Min 2 Views 4 VIEWS COMPARISON: None. FINDINGS: SOFT TISSUES: No soft tissue swelling or gas. No radiopaque foreign body. BONES/JOINTS: No acute fracture or subluxation.. Normal alignment. Narrowed glenohumeral joint space and acromioclavicular joint... No sclerotic or destructive changes observed. RAD/Shoulder min 2 Views IMPRESSION: Degenerative changes. No acute fracture or other significant bony pathology Electronically Signed: Pineda Bond MD at 22:18 EST ,
--- NOTE | 2022-07-29 09:53 | RAD_ITS ---
INDICATION: PAIN EXAMINATION/TECHNIQUE: X-RAY - XR Spine Cervical 4 or 5 Views COMPARISON: None. FINDINGS: VERTEBRAE: Preserved vertebral body height. No fracture. Grade 1 spondylolisthesis at C3-4.. Preservation of the normal cervical lordosis. Multilevel facet arthropathy. DISCS: Disc spaces are maintained. NECK SOFT TISSUES: No prevertebral soft tissue widening. LUNG APICES: Clear. RAD/Cerv Spine 4 or 5 Views IMPRESSION: Degenerative changes. No acute fracture or other significant pathology. CT or MRI recommended for further evaluation if clinically warranted Electronically Signed: Pineda Bond MD at 21:44 EST ,
== END | disposition home or self-care (01) ==
LOC: MTRAD 09:50
PROVIDERS: PCP Family Medicine; Referring Provider Family Medicine; Visit Provider Family Medicine
DX: M47.812 Spondylosis without myelopathy or radiculopathy, cervical region (principal); M25.512 Pain in left shoulder
CPT/HCPCS: 72050; 73030

== ENCOUNTER → 2022-09-08 | Outpatient (CLI) | payer MEDICAID, SELFPAY ==
--- NOTE | 2022-09-08 15:00 | NEURO ---
NCS and/or EMG Patient Report Ordering Doctor: Saulo Griggs DATE OF SERVICE: 09/08/22 Cammy presents for electrodiagnostic testing of the left upper limb. She reports neck pain and a stabbing sensation in the left hand. Electrodiagnostic Findings: The left median motor nerve demonstrates normal distal latency, amplitude with reduced conduction velocity. Left ulnar motor response is within normal limits. Normal left median and ulnar F-wave. Sensory responses are within normal limits. Needle EMG testing reveals no evidence of denervation in any muscles tested. No denervation noted in the cervical paraspinals. Motor unit action potentials are of normal amplitude and duration. Electrodiagnostic assessment: This is a normal electrodiagnostic study of the left upper limb. There is no electrodiagnostic evidence for peripheral neuropathy, including carpal tunnel or cubital tunnel syndrome. There is no electrodiagnostic evidence for cervical radiculopathy.
== END | disposition home or self-care (01) ==
LOC: PSN 13:41
PROVIDERS: PCP Family Medicine; Referring Provider Family Medicine; Visit Provider Family Medicine
DX: M54.12 Radiculopathy, cervical region (principal); M19.012 Primary osteoarthritis, left shoulder
CPT/HCPCS: 95886; 95910; 97140

== ENCOUNTER 2022-09-27 09:00 | Outpatient (RCR) | payer MEDICAID, SELFPAY ==
--- NOTE | 2022-09-01 10:28 | HP.PTEVAL_ITS ---
Patient's Visit Information ALAINA FOWLER is a 61 year old F referred to Physical Therapy by Out of Town Doctor with a diagnosis of Cervical Radiculopathy and Left Shoulder OA. Date of Evaluation: 09/01/22 Physical Therapist: Ayse Phan DPT - Visit Plan Frequency: 2x /Week Duration: 4 Weeks Plan: Focus on scapular strength/stabilization- modalities of ultrasound, e-stim- manual therapy. Start with heat- gentle manual and then progress to scapular s/s- end with modality for pain relief. HEP Given IE: posture, scapular retractions and supine chin tucks - Subjective Patient reports that her neck hurts from her occiput down her back to her thoracic- and radiates down the left arm. She has fibro and RA but doesn't feel that its that. She has had this for a long time- she had x-rays that showed discs in 2018 and fell off the back of a truck and landed on her left elbow. No fracture or dislocation but since then she has had issues with her left arm. She has seen neuro and many other doctors who report that its just her fibro. Saw at who reports that they think its shifting in her spine. She has had some x-rays which were negative. It does not affect the right arm mostly just the left. Right hand dominate. Describes the pain as sharp/shooting/dull and achy. Radiates all the way down to her palm- feels like something is stabbing it. Agg: end of the day, lifting and movement, Eases: heating pad. Sleep: disturbed but does sleep on a heating pad- hard to get comfortable. She has had PT on her neck a long time ago. She has been in a neck brace a long time ago- but is not wearing it anymore. 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 October but she is already on the fence and is probably not going back due to the physicality of the job. Tylenol is the only medication she takes for pain. She does get HAs if she does too much and will have some blurred vision and dizziness when the pain increases. Its worse if she lays down because it has pressure- she is much better in a chair. March 20th will have a nerve conduction test. PMHx: none Meds: Tylenol - Objective Posture: FH, RS- can correct but does not maintain. Gait: guarded- decreased arm swing and trunk rotation. Palpation: tender throughout cervical spine, upper trap, medial border of the scapula, bicipital groove, bicep and tricep to the elbow. ROM: Cervical Spine: Flexion: WFL, Extn: dec by 50%, SB: dec by 50%, Rot: dec by 50%, UE: WFL with pain at end range shoulder ROM. Strength: Scap: poor, Shoulder: 4/5 isometrics, Elbow: 4+/5 Wrist: 5/5, Research Geneticist: equal. Sensation: WFL. Flex: Upper Trap: severe. Levator: moderate. Special Test: Spurling's: positive, Distraction: positive - Special Tests L Shoulder Drop Sign - IS Test: Positive L Shoulder Empty Can - SS: Positive L Shoulder Neer - Impingement: Positive L Shoulder [place] - Impingement: Positive - Balance/Special Test Scores Oswestry Neck Score: 23 - Goals Goal 1:: Patient will be I with HEP and progression Goal Time Frame: 4-6 Weeks Goal 2:: Patient will maintain proper posture t/o tx session to demo increased scap s/s Goal Time Frame: 4-6 Weeks Goal 3:: Patient will report 80% improvement Goal Time Frame: 4-6 Weeks Goal 4:: Patient will report no radicular s/s for 1 week Goal Time Frame: 4-6 Weeks - Rehabilitation Potential Physical Therapy Diagnosis: Patient presents with hypomobility- she has decreased cervical and UE ROM, scapular and UE strength/stabilization, muscular endurance leading to poor posture and increased pain, radiculopathy and increased pain with ADL's. Rehabilitation Potential: Fair - Anticipated Interventions Patient/Client Instruction: Educate patient on: Benefits of Fitness Program Therapeutic Exercise to Include: Strength training, Endurance training, Agility training, Body mechanics, Postural training, Flexibilty training, Neuromotor development, Dynamic Lumbar Stabilization, Scapular Strength/Stabilization For the Purpose of:: To improve muscle performance and motor function TENS: Yes Cryotherapy (ice pack, ice massage): Yes Thermo therapy (hot pack): Yes Ultrasound (thermal/non thermal): Yes For the Purpose of:: To improve muscle performance and motor function Thank you for the opportunity to evaluate your patient. For Medicare and Medicare HMO plans, please review the plan of care and approve it. It will need to be FAXED BACK to us at [phone] for Medicare purposes. For Medicare only, by signing this I certify the plan of care. Please let me know if there are questions or concerns regarding this plan of care. Physician Signature: Date:
--- NOTE | 2023-01-31 11:39 | HP.PT.NRP ---
Patient Information Patient Information: ALAINA FOWLER was seen in my office for initial evaluation on 09/01/22. The following Plan of Care was established for this patient: POC Established Initial Frequency: 2x /Week Initial Duration: 4 Weeks Anticipated Interventions Patient/Client Instruction: Educate patient on: Benefits of Fitness Program Therapeutic Exercise to Include: Strength training, Endurance training, Agility training, Body mechanics, Postural training, Flexibilty training, Neuromotor development, Dynamic Lumbar Stabilization and Scapular Strength/Stabilization For the Purpose of:: To improve muscle performance and motor function TENS: Yes Cryotherapy (ice pack, ice massage): Yes Thermo therapy (hot pack): Yes Ultrasound (thermal/non thermal): Yes For the Purpose of:: To improve muscle performance and motor function Last Seen Last Seen: This patient was last seen in our office . Pertinent comments regarding their Physical therapy will appear below: Patient has not attended in PT in over 12 weeks- appropriate for d/c and return to MD for further evaluation At this point I will be discontinuing this patient from physical therapy. I would be happy to see this patient again in the future if found appropriate by the physician. Thank you! Ayse Phan, MANISHT Balance/Gait/Functional tests Balance/Special Test Scores Oswestry Neck Score: 23
== END 2022-09-27 19:00 | disposition home or self-care (01) ==
LOC: PT 09:00
PROVIDERS: PCP Family Medicine
DX: M54.12 Radiculopathy, cervical region (principal); M19.012 Primary osteoarthritis, left shoulder
CPT/HCPCS: 97110; 97140; 97162

== ENCOUNTER → 2022-11-03 | Outpatient (CLI) | payer MEDICAID, SELFPAY ==
--- NOTE | 2022-11-03 14:50 | NEURO ---
NCS and/or EMG Patient Report Ordering Doctor: Jair DATE OF SERVICE: 11/03/22 Cammy presents for electrodiagnostic testing of the left lower limb. She reports numbness and pain in the lateral aspect of the left foot since having surgery in May 2021. Electrodiagnostic findings: Left peroneal motor nerve demonstrates normal distal latency, amplitude and conduction velocity. Left tibial motor response is within normal limits normal left tibial and peroneal F waves. H reflex normal bilaterally. Normal left superficial peroneal response. Absent left sural response. On needle EMG, all muscles tested in the left lower limb as well as the lumbar paraspinal showed no evidence of denervation with normal motor unit action potentials. Electrodiagnostic findings: This is an abnormal study in the left lower limb 1. 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 However this is unlikely to account for her current symptoms in the foot. 2. No electrodiagnostic evidence for lumbosacral radiculopathy.
== END | disposition home or self-care (01) ==
LOC: PSN 08:56
PROVIDERS: PCP Family Medicine
DX: R20.0 Anesthesia of skin (principal)
CPT/HCPCS: 94726; 94060; 94729; 95886; 95909

== ENCOUNTER → 2022-12-20 | Outpatient (CLI) | payer MEDICAID, SELFPAY ==
--- NOTE | 2022-12-20 16:25 | RAD_ITS ---
INDICATION: ANKLE PAIN EXAMINATION/TECHNIQUE: X-RAY - LEFT XR Ankle Min 3 Views 4 VIEWS COMPARISON: None. FINDINGS: BONES: No fracture demonstrated. Bones appear osteopenic. JOINTS: No dislocation. SOFT TISSUES: Unremarkable. RAD/Ankle min 3 Views IMPRESSION: No evidence of fracture. Osteopenic. Electronically Signed: Mey Cruz MD at 4:24 EDT ,
== END | disposition home or self-care (01) ==
LOC: MTRAD 16:22
PROVIDERS: PCP Family Medicine
DX: M25.572 Pain in left ankle and joints of left foot (principal)
CPT/HCPCS: 73610

== ENCOUNTER → 2024-11-15 | Outpatient (CLI) | payer MEDICAID, SELFPAY ==
[2024-11-15 15:19] LABS: Absolute Lymphocyte Count 1.12 X10^3/uL (0.83-4.51); Absolute Neutrophil Count 1.9 X10^3/uL (2.0-7.7); Basophil# 0.02 X10^3/uL; Basophil% 0.6 % (0-1); Eosinophil# 0.05 X10^3/uL; Eosinophils% 1.5 % (0-5); Hematocrit 41.9 % (37-47); Hemoglobin 14.4 g/dL (12.0-15.0); Lymphocyte # 1.12 X10^3/ul (0.83-4.51); Lymphocyte % 33.4 % (19-41); Mean Corp Hgb Conc 34.4 g/dL (32-36); Mean Corpuscular Hgb 30.6 pg (27.0-32.0); Mean Corpuscular Volume 89.1 fL (81-99); Mean Platelet Vol. 10.2 fl (6.2-12.0); Monocyte# 0.22 X10^3/uL; Monocyte% 6.6 % (0-10); NRBC Flagged by Analyzer 0 % (0-5); Neutrophil # 1.93 X10^3/uL (2.7-7.7); Neutrophil % 57.6 % (47-70); Platelet Count 317 K/mm3 (150-450); RBC Distribution Width CV 12.4 % (11.6-14.6); RBC Distribution Width SD 40.7 fl (35.1-43.9); White Blood Count 3.4 K/mm3 (4.4-11.0)
[2024-11-15 16:25] LABS: ALB/GLOB Ratio 1.9 RATIO (0.9-2.4); AST(SGOT) 24 U/L (<=31); Alanine Aminotransfer ALT/SGPT 38 U/L (<=34); Albumin, Serum 4.6 g/dL (3.4-4.8); Alkaline Phosphatase 72 U/L (35-104); Anion Gap 11 (5-15); BUN 18 mg/dL (4-19); BUN/Creat Ratio 23.5 RATIO (10-20); Calcium,Total 9.7 mg/dL (7.6-11.0); Carbon Dioxide 23.2 mmol/L (21.0-32.0); Chloride 105 mmol/L (98-108); Creatinine, Serum 0.75 mg/dL (0.70-1.20); EST Glomerular Filtration Rate 89 (>60); Globulin 2.4 g/dL (2.2-4.2); Glucose 97 mg/dL (70-99); Potassium 4.1 mmol/L (3.3-5.1); Sodium Level 139 mmol/L (133-145); Thyroid Stim Hormone (TSH) 0.793 uIU/mL (0.300-4.200); Total Bilirubin 0.62 mg/dL (0.00-1.30)
== END | disposition home or self-care (01) ==
LOC: MTLAB 11:43
PROVIDERS: PCP Family Medicine; Referring Provider Family Medicine; Visit Provider Family Medicine
DX: Z00.00 Encounter for general adult medical examination without abnormal findings (principal); R63.5 Abnormal weight gain
CPT/HCPCS: 36415; 80053; 84439; 84443; 85025